=== PATIENT | female | born 1955 | race Caucasian/White ===

== ENCOUNTER 2020-01-10 15:38 | Emergency (ER) | payer OTHER, MEDICAID, SELFPAY ==
[~2020-01-10] VITALS: Ht 188 cm; Wt 101.6 kg
[2020-01-10 15:38] VITALS: BP_SYST 123
--- NOTE | 2020-01-10 15:38 | NUR ---
Patient triaged and waiting for room. VSS and patient appears in no acute distress at this time. Accompanied by trasnport team, awaiting available bed, and MD notified of need for MSE.
--- NOTE | 2020-01-10 16:30 | NUR ---
Patient to ER bed 03 to gown for evaluation. Side rails up.
--- NOTE | 2020-01-10 16:32 | NUR ---
Alberto meyers in ED - 01/10/20 at 1633 by JORDAN Patient to [facility] for [facility]. Side rails up. Report given to NGHIA Razo.
--- NOTE | 2020-01-10 16:35 | NUR ---
pt in [facility] room 3. Awake and responsive. No distress noted.
[2020-01-10 16:53] LABS: BASOPHILS # (AUTO) 0.1 K/uL (0.0-0.2); BASOPHILS % (AUTO) 0.7 % (0.0-2.0); EOSINOPHILS # (AUTO) 0.2 K/uL (0.0-0.4); EOSINOPHILS % (AUTO) 1.7 % (0.0-4.0); HEMATOCRIT 44.5 % (36-48); HEMOGLOBIN 14.7 g/dL (12.0-16.0); LYMPHOCYTES # (AUTO) 2.2 K/uL (1.0-5.5); LYMPHOCYTES % (AUTO) 21.3 % (20.5-51.5); MEAN CORPUSCULAR HEMOGLOBIN 27 pg (27-31); MEAN CORPUSCULAR HGB CONC 33 % (32-36); MEAN CORPUSCULAR VOLUME 82 fL (79.0-98.0); MONOCYTES # (AUTO) 0.8 K/uL (0.0-1.0); MONOCYTES % (AUTO) 7.7 % (1.7-9.3); NEUTROPHILS # (AUTO) 7.2 K/uL (1.8-7.7); NEUTROPHILS % (AUTO) 68.6 % (40.0-70.0); PLATELET COUNT (AUTO) 270 K/uL (130-430); RED BLOOD CELL COUNT(AUTO) 5.46 MIL/uL (4.2-6.2); RED CELL DISTRIBUTION WIDTH 15.1 % (9.0-15.0); WHITE BLOOD COUNT (AUTO) 10.5 K/uL (4.8-10.8)
[2020-01-10 17:27] LABS: CALCIUM 9.2 mg/dL (8.4-11.0); CREATININE 0.6 mg/dL (0.55-1.30); POTASSIUM 3.4 mmol/L (3.5-5.1)
[2020-01-10 17:34] LABS: ALBUMIN 3.2 g/dL (3.4-4.8); TOTAL BILIRUBIN 0.8 mg/dL (0.0-1.0)
[2020-01-10 17:51] LABS: BILIRUBIN,URINE 2+ (NEGATIVE); BLOOD, URINE NEGATIVE (NEGATIVE); CLARITY/URINE SL CLOUDY (CLEAR); COLOR,URINE YELLOW (YELLOW); GLUCOSE,URINE NEGATIVE (NEGATIVE); KETONES,URINE 1+ (NEGATIVE); LEUKOCYTE ESTERASE ,URINE 2+ (NEGATIVE); NITRITE, URINE POSITIVE (NEGATIVE); PROTEIN URINE TRACE (NEGATIVE)
[2020-01-10] MEDS ORDERED: KCL 20 mEq in 100 mL (PREMIX) 100 ML IV ONE (18:00)
--- NOTE | 2020-01-10 18:00 | NUR ---
# 22 gauge angiocath placed to left arm. Use of asceptic technique. Opsite placed over site. Blood return noted. Blood for lab drawn from site. Flushed with 10 cc of normal saline. No evidence of infiltration noted. Patient tolerated well.
[2020-01-10 18:09] LABS: BARBITURATE, URINE NEGATIVE (NEG <=200); BENZODIAZEPINE, URINE NEGATIVE (NEG <=150); CANNABINOID, URINE NEGATIVE (NEG <=50); COCAINE, URINE NEGATIVE (NEG <=150); METHAMPHETAMINES SCREEN,URINE NEGATIVE (NEG <=500); OPIATE, URINE NEGATIVE (NEG <=100); PHENCYCLIDINE SCREEN,URINE NEGATIVE (NEG <=25); UR TRICYCLIC ANTIDEPRESSANTS NEGATIVE (NEG <=300); URINE AMPHETAMINE NEGATIVE (NEG <=500); URINE METHADONE NEGATIVE (NEG <=200); URINE OXYCODONE SCREEN NEGATIVE (NEG <=100); URINE PROPOXYPHENE SCREEN NEGATIVE (NEG <=300)
--- NOTE | 2020-01-10 18:12 | NUR ---
Pt in [place], non responsive to verbal stimuli but moves to tactile stimuli. VSS.
[2020-01-10 18:29] LABS: BACTERIA,URINE MANY /HPF (None Seen); COARSE GRANULAR CASTS,URINE 0-10 /LPF (None Seen); MUCUS,URINE 2+ /LPF (None Seen); RBC,URINE 0-3 /HPF (0-3); WBC,URINE >100 /HPF (0-3)
[2020-01-10] MEDS ORDERED: cefTRIAXone 1 GM VIAL IM ONE (18:45)
--- NOTE | 2020-01-10 19:10 | NUR ---
Patient had seizure episode, Dr. Dang notified.
--- NOTE | 2020-01-10 19:12 | NUR ---
Dr. Dang at bedside.
--- NOTE | 2020-01-10 19:16 | NUR ---
Pt shaking and HR elevated. Provider made aware. Potassium held. Awaiting new orders.
--- NOTE | 2020-01-10 19:17 | NUR ---
report given to NGHIA Elliott
[2020-01-10] MEDS ORDERED: LIDOCAINE 1%, 20 ML MDV 20 ML ONE (20:29)
--- NOTE | 2020-01-10 22:04 | NUR ---
Patient resting quietly. No acute distress noted. Vital signs within normal range.
[2020-01-10 22:36] VITALS: BP_SYST 124
--- NOTE | 2020-01-10 22:36 | NUR ---
Patient to be transferred to [facility] Is being transferred due to higher level of care. Receiving facility has accepting physician and available space. ER physician has signed transfer form. Patient or responsible republican has agreed to transfer and signed form. Patient belongings inventoried and will be sent with patient. Copy of nursing notes, lab reports, EKG, Physicians Orders and X-rays to be sent with patient. Report called to NGHIA Fritz at receiving facility. Receiving physician is Dr. Harris. [facility] ambulance service has been called for transfer.
== END 2020-01-10 22:36 ==
LOC: SED 15:38
DX: N39.0 Urinary tract infection, site not specified (principal); F20.9 Schizophrenia, unspecified; F29 Unspecified psychosis not due to a substance or known physiological condition; R94.31 Abnormal electrocardiogram [ECG] [EKG]; Z88.6 Allergy status to analgesic agent; Z88.5 Allergy status to narcotic agent; Z20.828 Contact with and (suspected) exposure to other viral communicable diseases
CPT/HCPCS: 36415; 80053; 80307; 81000; 85025; 87081; 87086; 87186; 87426; 93005; 96365; 96372; 99285; J0696; J2001; J3480